=== PATIENT | female | born 1955 | race African-American/Black ===

== ENCOUNTER 2017-07-05 18:29 | Observation (INO) ==
[2017-07-05] MEDS ORDERED: KETOROLAC 30 MG/1 ML VIAL IV STA (19:01)
[2017-07-05] MEDS ORDERED: ONDANSETRON 4 MG/2 ML VIAL IV STA (19:01)
--- NOTE | 2017-07-05 19:05 | Emergency Department Note ---
Arrival - Arrival Chief Complaint: Chest Pain Stated Complaint: N/blood presure, aching ED Nursing Triage Note: nausea and vomting with body aches - pt states that she has also been having some elevated blood pressure and states that she has been having some chest pain that is off and on - Mode of Arrival: Ambulatory Limitations: No Limitations Source: Patient Time Seen by Provider: 07/05/17 19:01 - History of Present Illness HPI Narrative: This 61-year-old black female presents with multiple medical problems for the last 24 hours. She complains of diffuse body aches, abdominal pain that radiates to the back, headache, nasal congestion, chest pain, nausea, vomiting, loose stools, and generally not feeling herself. Patient denies any shortness of breath or diaphoresis in association with the chest pain. At this time that she she does not appear in any acute medical distress. Onset (ago): day(s) (Patient presents 2 days post onset of symptoms) Date of Last Menstrual Period: bora Allergies/Adverse Reactions: Allergies Allergy/AdvReac Type Severity Reaction Status Date / Time acetaminophen [From Lortab] AdvReac Nausea Verified 02/13/17 11:17 codeine AdvReac Nausea Verified 02/13/17 11:17 hydrocodone [From Lortab] AdvReac Nausea Verified 02/13/17 11:17 lisinopril AdvReac Cough Verified 02/13/17 12:04 propoxyphene AdvReac Nausea Verified 02/13/17 11:17 [From Darvocet-N] Home Medications: Home Medications Medication Instructions Recorded Confirmed Type Aspirin EC Tab 81 mg PO QPM 07/01/15 02/13/17 History Metoprolol Tartrate 50 mg PO QAM 01/12/17 02/13/17 History Cholecalciferol (Vitamin D3) 5,000 unit PO DAILY 02/12/17 02/13/17 History [Vitamin D3] Cyanocobalamin (Vitamin B-12) 500 mcg PO DAILY 02/12/17 02/13/17 History [Vitamin B-12] Valsartan [Diovan] 160 mg PO DAILY 02/12/17 02/13/17 History traZODone [Desyrel] 50 mg PO BEDTIME PRN 02/13/17 02/13/17 History Review of System - Review of System 12 point system: reviewed and no additional remarkable complaints except as stated - Review of System Constitutional: Present: as per HPI Respiratory: Present: as per HPI Cardiovascular: Present: as per HPI Gastrointestinal: Present: as per HPI Medical,Surgical,& Family Hx - Medical History Cardio: History of: Cardiac Dysrhythmia (a fib), Hypertension Neurology: No history of: Seizures Gastrointestinal: History of: GERD - Surgical History Cardiac Surgeries: Sugical HX of: Cardiac Catheterization (2) - Social History Smoking Status: Never smoker Frequency of Alcohol Use: None Type of Drug Use: None Exam Physical Examination: GENERAL: Obese black female in no acute distress. HEENT: Normocephalic. No trauma. Moist mucous membranes. EOMI. PERRLA. ENT NML NECK: Supple. No adenopathy. CARDIAC: Regular. Occasional PVC. No murmurs. Heart rate 73 CHEST: Clear to auscultation. No respiratory distress. O2 sat 100% ABDOMEN: Soft. Tender mid epigastrium. Hypoactive bowel sounds. EXTREMITIES: No trauma. Normal ROM. No pedal edema. SKIN: No diaphoresis. No rash. NEURO: Alert. Neuro intact no focal deficits. Vital Signs: Vital Signs Temperature 98.1 F 07/05/17 18:55 Pulse Rate 73 07/05/17 18:55 Respiratory Rate 20 07/05/17 18:55 Blood Pressure 158/99 07/05/17 18:55 O2 Sat by Pulse Oximetry 100 07/05/17 18:44 Course - Reevaluation(s) Reevaluation #1: Advised patient that she would need to be hospitalized for further evaluation of her electrolyte imbalances. - Consultations Consultation #1: Discussed with the hospitalist service who will admit for further evaluation treatment. Results - Labs CBC & BMP: 07/05/17 19:01 07/05/17 19:03 Labs: I reviewed the patient's laboratory noted the low potassium, low calcium, and low glucose - Impressions EKG: Sinus rhythm with occasional PAC. Normal VA interval, normal QRS duration. Diffuse nonspecific ST changes. No acute injury pattern noted. - Diagnostic Findings Procedure: CT Abdomen and Pelvis: image reviewed by me, report reviewed by me ( Normal study) Disposition Clinical Impression: Hypokalemia, Hypocalcemia, Abdominal pain Case discussed with: patient, patient's family Disposition: Still a Patient Condition: Stable Time of Disposition: 23:43
--- NOTE | 2017-07-05 19:05 | EKG Report ---
Stationary ECG Study [facility] ER Test Date: 07/05/2017 6:48:26 PM Pat Name: DONIS VILCHIS Department: Room: 283 Gender: F Power Plant Operator: tommy : 1955 Requested by: Anthony Peraza Order Number: [id number] Reading MD: SUZIE HERRERA Intervals [place] Rate: 93 P: 61 ME: 174 QRS: 27 QRSD: 77 T: 37 QT: 351 QTc: 402 Interpretive Statements SINUS RHYTHM WITH FREQUENT VENTRICULAR PREMATURE COMPLEXES WITH OCCASIONAL SUPRAVENTRICULAR PREMATURE COMPLEXES MINIMAL ST DEPRESSION ABNORMAL RHYTHM ECG Electronically Signed On 07-06-17 11:20:44 CDT by SUZIE HERRERA [email or web address]
[2017-07-05] MEDS ORDERED: ONDANSETRON 4 MG/2 ML VIAL ONE (19:25)
[2017-07-05] MEDS ORDERED: KETOROLAC 30 MG/1 ML VIAL ONE (19:25)
[2017-07-05 19:32] LABS: Basophils % 0.4 % (0.0-0.8); Eosinophils # 0.1 10*3/uL (0.0-0.87); Eosinophils % 2.2 % (0.00-10.9); Hematocrit 35.9 VOL% (35.7-47.0); Hemoglobin 12.4 GM/DL (12.0-16.0); Immature Granulocytes % 0.4 %; Immature Granulocytes Absolute 0.02 #; Lymphocytes # 0.5 10*3/uL (1.4-4.0); Lymphocytes % 9.9 % (21.3-54.2); Mean Corpuscular HGB Conc 34.5 GM/DL (32-36); Mean Corpuscular Hemoglobin 31 PG (27-34); Mean Corpuscular Volume 90.9 FL (87-102); Mean Platelet Volume 12.6 FL (9.6-12.0); Monocytes # 0.2 10*3/uL (0.11-0.8); Monocytes % 4.7 % (1.7-12.7); NRBC # 0.02 10*3/uL; Neutrophils # 4.2 10*3/uL (1.4-7.4); Neutrophils % 82.4 % (38.7-73.9); Platelet Count 224 T/CUMM (130-400); Red Blood Count 3.95 MC/CUMM (3.8-5.5); Red Cell Distribution Width 12.8 % (9.3-17.3); White Blood Count 5.1 T/CUMM (4-12)
[2017-07-05 19:38] LABS: Apearance,Urine CLEAR (Clear); Bilirubin,Urine Negative (Negative); Blood, Urine Negative (Negative); Glucose,Urine (UA) Negative (Negative); Ketones,Urine Negative (Negative); Mucus,Urine Occasional /LPF (Occasional); Nitrite,Urine Negative (Negative); Protein,Urine Negative; RBC,Urine <1 /HPF (0-4); Squamous Epithelial Cell,Urine Occasional /HPF (0-10); Urine Color Yellow (Yellow); Urine Specific Gravity 1.017 (1.001-1.035); WBC,Urine 1 /HPF (0-6)
[2017-07-05 19:43] LABS: PT Patient Result 10.3 SECS
[2017-07-05 19:48] LABS: Barbiturates Screen,Urine Negative (Negative); Benzodiazepines Screen,Urine Negative (Negative); Cannabinoid Screen,Urine Negative (Negative); Opiate Screen,Urine Negative (Negative); Phencyclidine Screen,Urine Negative (Negative)
[2017-07-05 19:49] LABS: Alanine Aminotransferase 25 U/L (13-56); Albumin 2.6 G/DL (3.4-5.0); Alkaline Phosphatase 50 U/L (45-117); Aspartate Amino Transferase 18 U/L (0-37); Bilirubin,Total < 0.39 MG/DL (0.2-1.0); Blood Urea Nitrogen 8 MG/DL (7-18); Calcium 6.4 MG/DL (8.5-10.1); Glucose 67 MG/DL (74-106); Osmolality,Calculated 281.8 MOS/KG (273-304); Potassium 2.7 MMOL/L (3.5-5.1); Sodium 144 MMOL/L (136-145); Total Protein 5.6 G/DL (6.4-8.3); Troponin I Only < 0.015 NG/ML (0.00-0.045)
[2017-07-05] MEDS ORDERED: CALCIUM GLUCONATE 2,000 MG in SODIUM CHLORIDE 0.9% 100 ML IV ONE (19:59)
--- NOTE | 2017-07-05 20:02 | XRay Report ---
Portable chest. Indication: Chest pain. Comparison: February 13, 2017. The heart and mediastinal contours are unremarkable. The pulmonary vasculature is normal. There is no consolidation, pneumothorax, or pleural effusion. There is a mixed density lesion within the left humeral neck. Impression: No acute cardiopulmonary abnormality is seen. Mixed density lesion within the right proximal humerus. 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 PROCEDURE INTERPRETED AT [facility] DEPARTMENT OF RADIOLOGY Final Report Signed by: Dr. Valarie Lizarraga
[2017-07-05] MEDS ORDERED: SODIUM CHLOR 0.9% KCL 40 MEQ 40 MEQ/1,000 ML BAG IV ONE (20:06)
[2017-07-05] MEDS ORDERED: CALCIUM GLUCONATE 1,000 MG/10 ML VIAL IV ONE (20:06)
[2017-07-05] MEDS: SODIUM CHLOR 0.9% KCL 40 MEQ 40 MEQ/1,000 ML BAG IV SCH (20:15)
[2017-07-05] MEDS ORDERED: DEXTROSE 50% 25 GM/50 ML VIAL IV STA (22:45)
[2017-07-05] MEDS ORDERED: DEXTROSE 50% 25 GM/50 ML SYRINGE IV ONE (22:48)
[2017-07-06] MEDS ORDERED: ONDANSETRON 4 MG/2 ML VIAL IV PRN (00:34)
[2017-07-06] MEDS ORDERED: ALUMINUM/MAGNES/SIMETH MAX STR 30 ML UDCUP PO PRN (00:40)
--- NOTE | 2017-07-06 00:53 | Hospitalist History & Physical ---
<Jannette Wiley - Last Filed: 07/06/17 00:41> History of Present Illness Chief complaint: Epigastric pain, back pain, generalized weakness/malaise History of present illness: Ms. Araujo is a 61 year old female with a past medical history significant for HTN, cardiac dysrhythmias including afib and bigeminy, Home Medications Medication Instructions Recorded Confirmed Type Aspirin EC Tab 81 mg PO QPM 07/01/15 02/13/17 History Metoprolol Tartrate 50 mg PO QAM 01/12/17 02/13/17 History Cholecalciferol (Vitamin D3) 5,000 unit PO DAILY 02/12/17 02/13/17 History [Vitamin D3] Cyanocobalamin (Vitamin B-12) 500 mcg PO DAILY 02/12/17 02/13/17 History [Vitamin B-12] Valsartan [Diovan] 160 mg PO DAILY 02/12/17 02/13/17 History traZODone [Desyrel] 50 mg PO BEDTIME PRN 02/13/17 02/13/17 History Allergies Allergy/AdvReac Type Severity Reaction Status Date / Time acetaminophen [From Lortab] AdvReac Nausea Verified 02/13/17 11:17 codeine AdvReac Nausea Verified 02/13/17 11:17 hydrocodone [From Lortab] AdvReac Nausea Verified 02/13/17 11:17 lisinopril AdvReac Cough Verified 02/13/17 12:04 propoxyphene AdvReac Nausea Verified 02/13/17 11:17 [From Darvocet-N] Medical,Surgical,& Family Hx - Medical History Cardio: History of: Cardiac Dysrhythmia (a fib), Hypertension Neurology: No history of: Seizures Gastrointestinal: History of: GERD - Surgical History Cardiac Surgeries: Sugical HX of: Cardiac Catheterization (2) - Social History Smoking Status: Never smoker Frequency of Alcohol Use: None Type of Drug Use: None Exam - Constitutional Vitals: Period Temp Pulse Resp BP Sys/Moreno Pulse Ox Last 24 Hr 98.1 F-98.1 F 73-73 20-20 158-158/99-99 100 Results - Labs CBC & BMP: 07/05/17 19:01 07/05/17 19:03 <Juan Saravia - Last Filed: 07/06/17 01:42> Assessment and Plan (1) Pneumonia Status: Acute Assessment and plan: The patient is admitted to the hospital with cough and diaphoresis with sputum production consistent with pneumonia. Chest x-ray reveals progressively calcified infiltrates in the right upper lung right lower lung and left midlung. The patient will receive IV antibiotics and inhaled beta agonist nebulized breathing therapies and we will obtain pulmonary consultation. We will continue the patient's usual home peritoneal dialysis therapy. Current Visit: Yes Qualifiers: Pneumonia type: due to Pneumococcus Laterality: bilateral Lung location: upper lobe of lung Qualified Code(s): J13 - Pneumonia due to Streptococcus pneumoniae History of Present Illness History of present illness: Ms. Araujo is a 61 year old female the patient presents to the hospital with shortness of breath and cough with sputum production. The cough is moderate, continuous, and worsening. It has been associated with fever, chills, but without dysuria. A complete 10 system review is obtained and all systems not mentioned in history of present illness were negative. Medical,Surgical,& Family Hx - Family History Family History: Reports;: Family Hypertension - Social History Marital Status: Lives With:: Spouse Functional capacity: independent ambulation 12 point system: reviewed and no additional remarkable complaints except as stated Exam - Constitutional Vitals: Period Temp Pulse Resp BP Sys/Moreno Pulse Ox Last 24 Hr 98.1 F-98.1 F 73-73 20-20 158-158/99-99 100 Constitutional System: Mild distress. No tremulousness. No Reiger Head: Normocephalic, atraumatic. Ears, Nose and Throat System: No evidence of Otitis or Mastoiditis. No epistaxis or discharge Eyes System: Pupils equal, round, and reactive. Extraocular muscles intact. Neck: Supple, without adenopathy, No jugular venous distention. No thyromegaly , neck mass, or prior surgery apparent. Respiratory System: Chest rhonchi on right to auscultation. Cardiovascular System: Heart with regular rate and rhythm. No murmur. GI System: Abdomen soft, nontender. Normo active bowel sounds present. Musculoskeletal System: limbs with no pedal edema. Full distal pulses. Neurological System: No discernable sensory deficit. No aphasia Psychiatric System: Conversation is rational Capillary Refill: less than 2 sec Results - Labs CBC & BMP: 07/05/17 19:01 07/05/17 19:03 Lab Results: I have reviewed the past 24 hour labs
[2017-07-06] MEDS: SODIUM CHLOR 0.9% KCL 40 MEQ 40 MEQ/1,000 ML BAG IV SCH ×2 (01:24→05:56)
--- NOTE | 2017-07-06 02:34 | Hospitalist History & Physical ---
History of Present Illness History of present illness: Ms. Araujo is a 61 year old female Home Medications Medication Instructions Recorded Confirmed Type Aspirin EC Tab 81 mg PO QPM 07/01/15 02/13/17 History Metoprolol Tartrate 50 mg PO QAM 01/12/17 02/13/17 History Cholecalciferol (Vitamin D3) 5,000 unit PO DAILY 02/12/17 02/13/17 History [Vitamin D3] Cyanocobalamin (Vitamin B-12) 500 mcg PO DAILY 02/12/17 02/13/17 History [Vitamin B-12] Valsartan [Diovan] 160 mg PO DAILY 02/12/17 02/13/17 History traZODone [Desyrel] 50 mg PO BEDTIME PRN 02/13/17 02/13/17 History Allergies Allergy/AdvReac Type Severity Reaction Status Date / Time acetaminophen [From Lortab] AdvReac Nausea Verified 02/13/17 11:17 codeine AdvReac Nausea Verified 02/13/17 11:17 hydrocodone [From Lortab] AdvReac Nausea Verified 02/13/17 11:17 lisinopril AdvReac Cough Verified 02/13/17 12:04 propoxyphene AdvReac Nausea Verified 02/13/17 11:17 [From Darvocet-N] Medical,Surgical,& Family Hx - Medical History Cardio: History of: Cardiac Dysrhythmia (a fib), Hypertension Neurology: No history of: Seizures Gastrointestinal: History of: GERD - Surgical History Cardiac Surgeries: Sugical HX of: Cardiac Catheterization (2) - Family History Family History: Reports;: Family Hypertension - Social History Smoking Status: Never smoker Frequency of Alcohol Use: None Type of Drug Use: None Exam - Constitutional Vitals: Period Temp Pulse Resp BP Sys/Moreno Pulse Ox Last 24 Hr 98.1 F-98.7 F 73-74 20-20 132-158/74-99 98-100 Results - Labs CBC & BMP: 07/05/17 19:01 07/05/17 19:03
[2017-07-06 06:12] LABS: Basophils % 0.3 % (0.0-0.8); Eosinophils # 0.1 10*3/uL (0.0-0.87); Eosinophils % 2.5 % (0.00-10.9); Hematocrit 32.8 VOL% (35.7-47.0); Hemoglobin 10.9 GM/DL (12.0-16.0); Immature Granulocytes Absolute 0.03 #; Lymphocytes # 0.6 10*3/uL (1.4-4.0); Lymphocytes % 18.7 % (21.3-54.2); Mean Corpuscular HGB Conc 33.2 GM/DL (32-36); Mean Corpuscular Hemoglobin 31 PG (27-34); Mean Corpuscular Volume 92.4 FL (87-102); Monocytes # 0.4 10*3/uL (0.11-0.8); Monocytes % 11.7 % (1.7-12.7); Neutrophils # 2.1 10*3/uL (1.4-7.4); Neutrophils % 65.8 % (38.7-73.9); Platelet Count 180 T/CUMM (130-400); Red Blood Count 3.55 MC/CUMM (3.8-5.5); White Blood Count 3.2 T/CUMM (4-12)
[2017-07-06 08:00] LABS: Calcium 8.2 MG/DL (8.5-10.1); Magnesium 2.1 MG/DL (1.8-2.4); Osmolality,Calculated 278.3 MOS/KG (273-304); Potassium 4.3 MMOL/L (3.5-5.1)
--- NOTE | 2017-07-06 08:50 | CT Report ---
CT of the abdomen and pelvis with intravenous contrast. Indication: Generalized abdominal pain. 100 cc Omni 350. Axial images were obtained with sagittal and coronal reconstructions. Oral contrast was also administered. No comparison study. There is a preliminary report from [facility]. The heart is normal in size. There is mild scarring present within the lung bases. There is no pericardial or pleural effusion. The liver is normal in size. There is mild fatty infiltration of the liver. No focal liver lesions are identified. There is no biliary ductal dilatation. The gallbladder has been removed. The spleen is normal in size and configuration. There is no adrenal enlargement. No renal abnormality is seen. The urinary bladder is not distended. Possible mild urinary bladder wall thickening. The abdominal aorta is of normal caliber. There is an umbilical hernia which contains only fat. No pancreatic abnormality is identified. The pancreatic duct is not dilated. The gastric contour is normal. A few loops of small intestine are dilated and air filled without wall thickening or evidence of obstruction. The terminal ileum presents a normal appearance. The appendix is not discretely seen. No surgical history was given. The colon is not dilated. There are numerous diverticuli within the distal colon. No evidence of bowel obstruction. There are calcifications within the uterus which is not enlarged. No ovarian enlargement. No free air or free fluid. Impression: 1. Fatty liver. 2. Diverticulosis. 3. Mild ileus bowel gas pattern. 4. Umbilical hernia containing only fat. Excellent 5. Mild urinary bladder wall thickening which could be due to nondistention or cystitis. The CT exam was performed using one or more of the following dose reduction techniques: Automated exposure control, adjustment of the mA and/or kV according to patient size, or use of iterative reconstruction technique. PROCEDURE INTERPRETED AT [facility] DEPARTMENT OF RADIOLOGY Final Report Signed by: Dr. Valarie Lizarraga
[2017-07-06] MEDS ORDERED: PANTOPRAZOLE 40 MG TABLET PO SCH (09:00)
[2017-07-06] MEDS ORDERED: METOPROLOL TARTRATE 50 MG TABLET PO SCH (09:00)
[2017-07-06] MEDS ORDERED: CYANOCOBALAMIN 500 MCG TABLET PO SCH (09:00)
[2017-07-06] MEDS ORDERED: CHOLECALCIFEROL 1,000 UNIT TABLET PO SCH (09:00)
[2017-07-06] MEDS ORDERED: ENOXAPARIN 40 MG/0.4 ML SYRINGE SUBCUT SCH (09:00)
[2017-07-06] MEDS ORDERED: VALSARTAN 160 MG TABLET PO SCH (09:00)
--- NOTE | 2017-07-06 11:15 | Discharge Summary ---
Hospital Course - Hospital Course Hospital Course: 61-year-old female came in from nausea and vomiting thought to be secondary to viral illness. She was having complaints of more PVCs and palpitations. Metoprolol is currently just once a day and we have switched it to twice a day. Patient is morbidly obese and has evidence of sleep apnea. Apparently patient has been tested positive for sleep apnea is waiting for the fitting of her mask. With treatment of her sleep apnea and her her palpitations and PVCs should improve. Her weakness better today now that her blood calcium and calcium is been replaced. She has no abdominal discomfort today but I would keep her on Protonix for her stomach. Patient has chronic hypertension and her blood pressure is well controlled on her current medications. She denies any lightheadedness or dizziness after taking her blood pressure medicines. Her urine drug screen is negative. Her hemoglobin A1c is 6. With a little weight loss her her blood sugars should be well controlled. She is mildly anemic just to due to hydration. Patient will be discharged home to follow with Dr. Mcdaniel and Dr. Rodriguez as scheduled. - Time spent with patient Time with patient DS: Less than 30 minutes (25 min) Discharge Plan - Discharge Data Disposition: Disch To Home/Self Care Condition at Discharge: Stable Discharge Diet: heart healthy Activity: resume usual activities as tolerated Hygiene: no restrictions Weight Bearing at Discharge: full weight bearing Driving: no restrictions - Discharge Medications New Pantoprazole Tab [Protonix Tab] 40 mg PO DAILY #30 tablet Continue Aspirin EC Tab 81 mg PO QPM Cyanocobalamin (Vitamin B-12) [Vitamin B-12] 500 mcg PO DAILY Cholecalciferol (Vitamin D3) [Vitamin D3] 5,000 unit PO DAILY Valsartan [Diovan] 160 mg PO DAILY Changed Metoprolol Tartrate 50 mg PO BID #60 tablet Discontinued traZODone [Desyrel] 50 mg PO BEDTIME PRN PRN Reason: Sleep - Follow Up or Referral Follow Up: Aura Rodriguez MD [Physician] - (as scheduled for sleep apnea) Andi Mcdaniel MD [Physician] - 2 Weeks - Forms/Instructions Additional Discharge Instructions: PVCs will improve with treatment of [place]field Exam - Constitutional Vitals: Period Temp Pulse Resp BP Sys/Moreno Pulse Ox Last 24 Hr 97.9 F-98.7 F 73-106 16-20 127-158/64-99 98-100 General appearance: no acute distress, morbidly obese - Respiratory Respiratory exam: Present: clear to auscultation bilaterally - Cardiovascular Cardiovascular exam: Present: regular rate and rhythm. Absent: systolic murmur - GI/Abdominal GI/Abdominal exam: Present: normal bowel sounds, soft. Absent: tenderness Discharge Results Labs on day of discharge: Labs from last 24 hours 07/06/17 07/06/17 07/06/17 05:22 05:22 05:22 WBC RBC Hgb Hct MCV MCH MCHC RDW Plt Count MPV Neut % (Auto) Lymph % (Auto) [place] % (Auto) Eos % (Auto) Baso % (Auto) Neut # (Auto) Lymph # (Auto) [place] # (Auto) Eos # (Auto) Baso # (Auto) Immature Gran % Nucleated RBC % Immature Gran # Nucleated RBCs # Immature Plt Fraction INR PT Patient/Control Mix Circ Anticoag PTT Sodium 141 Potassium 4.3 Chloride 109 H Carbon Dioxide 25 Anion Gap 11.3 BUN 7 Creatinine 0.80 GFR Calculation 117 BUN/Creatinine Ratio 8.00 Glucose 100 POC Glucose Hemoglobin A1c 6.0 Calculated Osmolality 278.3 Calcium 8.2 L D Magnesium 2.1 Total Bilirubin AST ALT Alkaline Phosphatase Total Creatine Kinase CK-MB (CK-2) Troponin I < 0.015 Total Protein Albumin Globulin Albumin/Globulin Ratio Lipase Urine Color Urine Appearance Urine pH Ur Specific [place] Urine Protein Urine Glucose (UA) Urine Ketones Urine Blood Urine Nitrate Urine Bilirubin Urine Urobilinogen Urine Leukocytes Urine RBC Urine WBC Ur Squamous Epith Cells Urine Mucus Ur Culture Indicated? Urine Opiates Screen Ur Barbiturates Screen Ur Phencyclidine Scrn U Amphetamine/Methamph U Benzodiazepines Scrn U Cocaine Metab Screen U Cannabinoids Screen 07/06/17 07/05/17 07/05/17 05:22 22:50 19:03 WBC 3.2 L D RBC 3.55 L Hgb 10.9 L Hct 32.8 L MCV 92.4 MCH 31 MCHC 33.2 RDW 13.0 Plt Count 180 MPV 13.0 H Neut % (Auto) 65.8 Lymph % (Auto) 18.7 L [place] % (Auto) 11.7 Eos % (Auto) 2.5 Baso % (Auto) 0.3 Neut # (Auto) 2.1 Lymph # (Auto) 0.6 L [place] # (Auto) 0.4 Eos # (Auto) 0.1 Baso # (Auto) 0.0 Immature Gran % 1.0 Nucleated RBC % 0.0 Immature Gran # 0.03 Nucleated RBCs # 0.00 Immature Plt Fraction 0.0 INR PT Patient/Control Mix Circ Anticoag PTT Sodium Potassium Chloride Carbon Dioxide Anion Gap BUN Creatinine GFR Calculation BUN/Creatinine Ratio Glucose POC Glucose 78 Hemoglobin A1c Calculated Osmolality Calcium Magnesium Total Bilirubin AST ALT Alkaline Phosphatase Total Creatine Kinase CK-MB (CK-2) Troponin I Total Protein Albumin Globulin Albumin/Globulin Ratio Lipase Urine Color Urine Appearance Urine pH Ur Specific [place] Urine Protein Urine Glucose (UA) Urine Ketones Urine Blood Urine Nitrate Urine Bilirubin Urine Urobilinogen Urine Leukocytes Urine RBC Urine WBC Ur Squamous Epith Cells Urine Mucus Ur Culture Indicated? Urine Opiates Screen Negative Ur Barbiturates Screen Negative Ur Phencyclidine Scrn Negative U Amphetamine/Methamph Negative U Benzodiazepines Scrn Negative U Cocaine Metab Screen Negative U Cannabinoids Screen Negative 07/05/17 07/05/17 07/05/17 19:03 19:03 19:03 WBC RBC Hgb Hct MCV MCH MCHC RDW Plt Count MPV Neut % (Auto) Lymph % (Auto) [place] % (Auto) Eos % (Auto) Baso % (Auto) Neut # (Auto) Lymph # (Auto) [place] # (Auto) Eos # (Auto) Baso # (Auto) Immature Gran % Nucleated RBC % Immature Gran # Nucleated RBCs # Immature Plt Fraction INR PT Patient/Control Mix Circ Anticoag PTT 32.9 Sodium 144 Potassium 2.7 L Chloride 115 H Carbon Dioxide 21 Anion Gap 10.7 BUN 8 Creatinine 0.50 L GFR Calculation 152 BUN/Creatinine Ratio 16.00 Glucose 67 L POC Glucose Hemoglobin A1c Calculated Osmolality 281.8 Calcium 6.4 L Magnesium Total Bilirubin < 0.39 AST 18 ALT 25 Alkaline Phosphatase 50 Total Creatine Kinase 93 CK-MB (CK-2) < 1.0 Troponin I < 0.015 Total Protein 5.6 L Albumin 2.6 L Globulin 3.0 Albumin/Globulin Ratio 0.8 L Lipase 171.0 Urine Color Yellow Urine Appearance Clear Urine pH 7.0 Ur Specific [place] 1.017 Urine Protein Negative Urine Glucose (UA) Negative Urine Ketones Negative Urine Blood Negative Urine Nitrate Negative Urine Bilirubin Negative Urine Urobilinogen 2.0 H Urine Leukocytes Negative Urine RBC <1 Urine WBC 1 Ur Squamous Epith Cells Occasional Urine Mucus Occasional Ur Culture Indicated? Not indicated Urine Opiates Screen Ur Barbiturates Screen Ur Phencyclidine Scrn U Amphetamine/Methamph U Benzodiazepines Scrn U Cocaine Metab Screen U Cannabinoids Screen 07/05/17 07/05/17 19:03 19:01 WBC 5.1 RBC 3.95 Hgb 12.4 Hct 35.9 MCV 90.9 MCH 31 MCHC 34.5 RDW 12.8 Plt Count 224 MPV 12.6 H Neut % (Auto) 82.4 H Lymph % (Auto) 9.9 L [place] % (Auto) 4.7 Eos % (Auto) 2.2 Baso % (Auto) 0.4 Neut # (Auto) 4.2 Lymph # (Auto) 0.5 L [place] # (Auto) 0.2 Eos # (Auto) 0.1 Baso # (Auto) 0.0 Immature Gran % 0.4 Nucleated RBC % 0.4 Immature Gran # 0.02 Nucleated RBCs # 0.02 Immature Plt Fraction 0.0 INR 1.0 PT Patient/Control Mix 10.3 Circ Anticoag PTT Sodium Potassium Chloride Carbon Dioxide Anion Gap BUN Creatinine GFR Calculation BUN/Creatinine Ratio Glucose POC Glucose Hemoglobin A1c Calculated Osmolality Calcium Magnesium Total Bilirubin AST ALT Alkaline Phosphatase Total Creatine Kinase CK-MB (CK-2) Troponin I Total Protein Albumin Globulin Albumin/Globulin Ratio Lipase Urine Color Urine Appearance Urine pH Ur Specific [place] Urine Protein Urine Glucose (UA) Urine Ketones Urine Blood Urine Nitrate Urine Bilirubin Urine Urobilinogen Urine Leukocytes Urine RBC Urine WBC Ur Squamous Epith Cells Urine Mucus Ur Culture Indicated? Urine Opiates Screen Ur Barbiturates Screen Ur Phencyclidine Scrn U Amphetamine/Methamph U Benzodiazepines Scrn U Cocaine Metab Screen U Cannabinoids Screen DS: Provider Date of admission: 07/05/17 23:41 Primary care physician: Bernard Hoskins DO Attending physician on admission: Juan Saravia MD Discharging clinician: Gayle Draper MD
[2017-07-06 12:03] VITALS: BP 137/81
[2017-07-06] MEDS ORDERED: ASPIRIN EC 81 MG TABLET PO SCH (21:00)
== END 2017-07-06 12:30 | disposition home or self-care (01) ==
LOC: N.EDINP 18:29 → N.ED 18:29 → SUATTDRO 23:41 → N.TELEN 07-06 00:39
PROVIDERS: ADMIT Internal Medicine; ATTEND Internal Medicine